=== PATIENT | female | born 1935 | race African-American/Black ===

== ENCOUNTER → 2018-08-02 | Outpatient (CLI) | payer MEDICARE, BC | END | disposition home or self-care (01) | LOC: MRI 09:16 | PROVIDERS: ATTEND Anesthesiology | DX: M51.26 Other intervertebral disc displacement, lumbar region (principal); M48.061 Spinal stenosis, lumbar region without neurogenic claudication; M47.896 Other spondylosis, lumbar region | CPT/HCPCS: 72141; 72148 ==

== ENCOUNTER 2021-02-21 18:36 | Inpatient (IN) | payer MEDICARE, BC ==
[~2021-02-21] VITALS: Ht 165.1 cm; Wt 106.6 kg
[2021-02-21] MEDS ORDERED: SODIUM CHLORIDE 0.9% 1,000 ML IV ONE (19:15)
[2021-02-21 19:50] LABS: HEMATOCRIT. 47.1 % (36.0-48.0); HEMOGLOBIN. 15.5 g/dL (12.0-16.0); MEAN CORPUSCULAR HEMOGLOBIN 30.7 pg (28.0-32.0); MEAN CORPUSCULAR VOLUME 93.3 fL (81.0-99.0); MEAN PLATELET VOLUME 9.1 fl (7.4-10.4); PLATELET 251 x1000/uL (130-400); RED BLOOD CELL COUNT 5.06 mill/uL (4.2-5.4); RED CELL DISTRIBUTION WIDTH 14.8 % (11.6-14.6)
[2021-02-21 19:58] LABS: CHLORIDE 117 mEq/L (98-107)
[2021-02-21 19:59] LABS: INR 1.1; PROTHROMBIN TIME 11.4 sec (9.6-11.0)
[2021-02-21 20:15] LABS: CLARITY URINE CLOUDY (CLEAR); COLOR URINE DARK YELLOW (YELLOW); KETONES URINE TRACE (NEGATIVE); LEUKOCYTE ESTERASE URINE TRACE (NEGATIVE); NITRITE URINE NEGATIVE (NEGATIVE); OCCULT BLOOD URINE 3+ (NEGATIVE); PROTEIN URINE 4+ (NEGATIVE); SPECIFIC GRAVITY URINE 1.024 (1.005-1.030)
[2021-02-21 20:22] LABS: CREATINE KINASE 5094 IU/L (26-192)
[2021-02-21] MEDS ORDERED: SODIUM CHLORIDE 0.9% 1000ML BAG (SEPSIS BOLUS) IV ONE (21:15)
[2021-02-21] MEDS ORDERED: VANCOMYCIN 1 G PREMIX 200 ML IV ONE (21:15)
[2021-02-21] MEDS ORDERED: PIPERACILLIN/TAZ 3.375G PREMIX 50 ML IV ONE (21:15)
[2021-02-21 21:47] LABS: PLATELET ESTIMATE NORMAL
[2021-02-21] MEDS ORDERED: LEVOFLOXACIN 500MG PREMIX 100 ML IV NR (22:15)
[2021-02-21] MEDS ORDERED: CLONIDINE 0.2MG TABLET PO NR (23:00)
[2021-02-22] MEDS: HYDRALAZINE 20MG/ML VIAL IV PRN (01:05)
[2021-02-22 02:00] VITALS: BP 137/76
[2021-02-22] MEDS ORDERED: DEXTROSE 50% WATER 50ML SYRINGE IV PRN (02:15)
[2021-02-22] MEDS ORDERED: LEVOFLOXACIN 500MG PREMIX 100 ML IV SCH ×2 (02:15→09:00)
[2021-02-22 04:00] VITALS: BP 165/53
[2021-02-22 05:45] LABS: CHLORIDE 121 mEq/L (98-107)
[2021-02-22 05:48] LABS: BASOPHILS % 0.2 % (0.0-2.0); EOSINOPHILS % 0.3 % (0.0-5.0); HEMATOCRIT. 44.1 % (36.0-48.0); HEMOGLOBIN. 14.1 g/dL (12.0-16.0); LYMPHOCYTES % 8.6 % (20.0-50.0); MEAN CORPUSCULAR HEMOGLOBIN 30.1 pg (28.0-32.0); MEAN CORPUSCULAR VOLUME 94.3 fL (81.0-99.0); MEAN PLATELET VOLUME 8.7 fl (7.4-10.4); MONOCYTES % 9.5 % (2.0-8.0); NEUTROPHILS % 81.4 % (40.0-76.0); PLATELET 204 x1000/uL (130-400); RED BLOOD CELL COUNT 4.68 mill/uL (4.2-5.4); RED CELL DISTRIBUTION WIDTH 14.9 % (11.6-14.6)
[2021-02-22] MEDS: INSULIN LISPRO 100 UNITS/ML SUBCUT SCH ×4 (06:01→21:00)
[2021-02-22] MEDS: BLOOD SUGAR DIAGNOSTIC STRIP TEST SCH ×4 (06:01→21:49)
[2021-02-22 08:00] VITALS: BP 169/70
[2021-02-22] MEDS: ENOXAPARIN 30MG/0.3ML SYR SUBCUT SCH (08:31)
[2021-02-22] MEDS: AMLODIPINE 10MG TABLET PO SCH (08:32)
[2021-02-22 12:00] VITALS: BP 147/54
[2021-02-22] MEDS: DEXTROSE 5% WATER 1,000 ML IV SCH (12:21)
[2021-02-22] MEDS ORDERED: VANCOMYCIN 1 G PREMIX 200 ML IV SCH (15:00)
[2021-02-22 16:00] VITALS: BP 156/64
[2021-02-22 20:00] VITALS: BP 151/64
[2021-02-22] MEDS: HYDRALAZINE HCL 50MG TABLET PO SCH (21:49)
[2021-02-23] VITALS (8 sets, daily range): BP systolic 110–183; BP diastolic 62–98
[2021-02-23] MEDS: HYDRALAZINE 20MG/ML VIAL IV PRN (02:00)
[2021-02-23] MEDS: DEXTROSE 5% WATER 1,000 ML IV SCH (05:41)
[2021-02-23] MEDS: BLOOD SUGAR DIAGNOSTIC STRIP TEST SCH ×4 (05:41→21:55)
[2021-02-23] MEDS: INSULIN LISPRO 100 UNITS/ML SUBCUT SCH ×4 (05:41→21:54)
[2021-02-23] MEDS: ENOXAPARIN 30MG/0.3ML SYR SUBCUT SCH (09:43)
[2021-02-23] MEDS: HYDRALAZINE HCL 50MG TABLET PO SCH (09:44)
[2021-02-23] MEDS: AMLODIPINE 10MG TABLET PO SCH (09:44)
[2021-02-23 13:44] LABS: BASOPHILS % 0.3 % (0.0-2.0); EOSINOPHILS % 1.3 % (0.0-5.0); HEMATOCRIT. 41.5 % (36.0-48.0); HEMOGLOBIN. 14.1 g/dL (12.0-16.0); LYMPHOCYTES % 12.5 % (20.0-50.0); MEAN CORPUSCULAR HEMOGLOBIN 31.5 pg (28.0-32.0); MEAN CORPUSCULAR VOLUME 92.9 fL (81.0-99.0); MONOCYTES % 11.1 % (2.0-8.0); NEUTROPHILS % 74.8 % (40.0-76.0); PLATELET 199 x1000/uL (130-400); RED BLOOD CELL COUNT 4.47 mill/uL (4.2-5.4); RED CELL DISTRIBUTION WIDTH 14.7 % (11.6-14.6)
[2021-02-23] MEDS: HYDRALAZINE HCL 100MG TABLET PO SCH ×2 (15:34→21:54)
[2021-02-23 16:40] LABS: BASOPHILS % 0.3 % (0.0-2.0); EOSINOPHILS % 1.1 % (0.0-5.0); HEMATOCRIT. 45.3 % (36.0-48.0); HEMOGLOBIN. 15.7 g/dL (12.0-16.0); LYMPHOCYTES % 12.4 % (20.0-50.0); MEAN CORPUSCULAR HEMOGLOBIN 32.5 pg (28.0-32.0); MONOCYTES % 9.9 % (2.0-8.0); NEUTROPHILS % 76.3 % (40.0-76.0); RED BLOOD CELL COUNT 4.82 mill/uL (4.2-5.4); RED CELL DISTRIBUTION WIDTH 15.1 % (11.6-14.6)
[2021-02-23 19:15] LABS: MEAN PLATELET VOLUME 8.8 fl (7.4-10.4); PLATELET 172 x1000/uL (130-400)
[2021-02-23] MEDS: ACETAMINOPHEN 325MG TABLET PO PRN (20:30)
[2021-02-23] MEDS ORDERED: LEVOFLOXACIN 250MG PREMIX 50 ML IV SCH ×2 (21:00)
[2021-02-24] VITALS: BP 135/73
[2021-02-24] MEDS: DEXTROSE 5% WATER 1,000 ML IV SCH ×2 (02:57→23:25)
[2021-02-24 04:00] VITALS: BP 163/84
[2021-02-24] MEDS: INSULIN LISPRO 100 UNITS/ML SUBCUT SCH ×4 (05:18→21:00)
[2021-02-24] MEDS: BLOOD SUGAR DIAGNOSTIC STRIP TEST SCH ×4 (05:18→21:00)
[2021-02-24] MEDS: HYDRALAZINE HCL 100MG TABLET PO SCH ×3 (05:18→21:36)
[2021-02-24 08:00] VITALS: BP 149/65
[2021-02-24] MEDS: AMLODIPINE 10MG TABLET PO SCH (09:19)
[2021-02-24] MEDS: ENOXAPARIN 30MG/0.3ML SYR SUBCUT SCH (09:20)
[2021-02-24] MEDS: ACETAMINOPHEN 325MG TABLET PO PRN ×2 (09:31→21:38)
[2021-02-24 12:00] VITALS: BP 161/62
[2021-02-24 16:00] VITALS: BP 171/67
[2021-02-24 20:00] VITALS: BP 155/76
[2021-02-25] VITALS: BP 102/82
[2021-02-25 04:00] VITALS: BP 149/59
[2021-02-25] MEDS: ACETAMINOPHEN 325MG TABLET PO PRN ×2 (04:37→22:45)
[2021-02-25] MEDS ORDERED: DIPHENHYDRAMINE 50MG CAPSULE PO PRN (04:45)
[2021-02-25] MEDS: DIPHENHYDRAMINE 50MG/ML VIAL IV PRN (04:58)
[2021-02-25] MEDS: BLOOD SUGAR DIAGNOSTIC STRIP TEST SCH ×4 (06:13→21:00)
[2021-02-25] MEDS: HYDRALAZINE HCL 100MG TABLET PO SCH ×3 (06:24→22:13)
[2021-02-25] MEDS: INSULIN LISPRO 100 UNITS/ML SUBCUT SCH ×4 (07:35→21:00)
[2021-02-25 08:00] VITALS: BP 146/67
[2021-02-25] MEDS: ENOXAPARIN 30MG/0.3ML SYR SUBCUT SCH (08:56)
[2021-02-25] MEDS: AMLODIPINE 10MG TABLET PO SCH (08:56)
[2021-02-25 12:00] VITALS: BP 143/62
[2021-02-25] MEDS ORDERED: CEFTRIAXONE 1 G PREMIX 50 ML IV SCH (12:30)
[2021-02-25 16:00] VITALS: BP 142/62
[2021-02-25 16:07] LABS: BASOPHILS % 0.2 % (0.0-2.0); EOSINOPHILS % 0.4 % (0.0-5.0); HEMATOCRIT. 40.6 % (36.0-48.0); LYMPHOCYTES % 9.5 % (20.0-50.0); MEAN CORPUSCULAR HEMOGLOBIN 32.3 pg (28.0-32.0); MEAN CORPUSCULAR VOLUME 93.9 fL (81.0-99.0); MEAN PLATELET VOLUME 9.2 fl (7.4-10.4); MONOCYTES % 10.2 % (2.0-8.0); NEUTROPHILS % 79.7 % (40.0-76.0); PLATELET 211 x1000/uL (130-400); RED BLOOD CELL COUNT 4.33 mill/uL (4.2-5.4); RED CELL DISTRIBUTION WIDTH 14.7 % (11.6-14.6)
[2021-02-25] MEDS ORDERED: POTASSIUM CHLORIDE 20MEQ TABLET SR PO NR (16:45)
[2021-02-25] MEDS ORDERED: LACTULOSE 20G/30ML UDC PO NR (16:54)
[2021-02-25] MEDS: CEFTRIAXONE 1,000 MG in DEXTROSE 5% WATER 50 ML IV SCH (17:27)
[2021-02-25] MEDS: TRAMADOL 50MG TABLET PO PRN (17:28)
[2021-02-25] MEDS: DOCUSATE SODIUM 100MG CAPSULE PO SCH (17:28)
[2021-02-25] MEDS: DEXTROSE 5% WATER 1,000 ML IV SCH (19:15)
[2021-02-25 20:00] VITALS: BP 145/62
[2021-02-26] VITALS (7 sets, daily range): BP systolic 135–156; BP diastolic 50–63
[2021-02-26] MEDS: HYDRALAZINE HCL 100MG TABLET PO SCH ×3 (06:10→21:26)
[2021-02-26] MEDS: BLOOD SUGAR DIAGNOSTIC STRIP TEST SCH ×4 (06:10→20:33)
[2021-02-26] MEDS: INSULIN LISPRO 100 UNITS/ML SUBCUT SCH ×4 (06:54→20:32)
[2021-02-26] MEDS: ENOXAPARIN 30MG/0.3ML SYR SUBCUT SCH ×2 (11:23→11:28)
[2021-02-26] MEDS: AMLODIPINE 10MG TABLET PO SCH (11:29)
[2021-02-26] MEDS: DOCUSATE SODIUM 100MG CAPSULE PO SCH ×2 (11:29→18:03)
[2021-02-26] MEDS: CEFTRIAXONE 1,000 MG in DEXTROSE 5% WATER 50 ML IV SCH (14:01)
[2021-02-26 21:39] LABS: BASOPHILS % 0.2 % (0.0-2.0); HEMOGLOBIN. 13.3 g/dL (12.0-16.0); LYMPHOCYTES % 9.9 % (20.0-50.0); MEAN CORPUSCULAR HEMOGLOBIN 31.4 pg (28.0-32.0); MEAN CORPUSCULAR VOLUME 94.2 fL (81.0-99.0); MEAN PLATELET VOLUME 8.8 fl (7.4-10.4); MONOCYTES % 12.2 % (2.0-8.0); NEUTROPHILS % 76.7 % (40.0-76.0); PLATELET 219 x1000/uL (130-400); RED BLOOD CELL COUNT 4.25 mill/uL (4.2-5.4); RED CELL DISTRIBUTION WIDTH 14.8 % (11.6-14.6)
[2021-02-27] VITALS (7 sets, daily range): BP systolic 138–173; BP diastolic 55–62
[2021-02-27] MEDS: DEXTROSE 5% WATER 1,000 ML IV SCH ×2 (00:50→12:59)
[2021-02-27] MEDS: DIPHENHYDRAMINE 50MG/ML VIAL IV PRN (01:55)
[2021-02-27] MEDS: TRAMADOL 50MG TABLET PO PRN ×2 (01:56→09:40)
[2021-02-27] MEDS: BLOOD SUGAR DIAGNOSTIC STRIP TEST SCH ×4 (06:34→21:09)
[2021-02-27] MEDS: HYDRALAZINE HCL 100MG TABLET PO SCH ×3 (06:36→21:45)
[2021-02-27] MEDS: INSULIN LISPRO 100 UNITS/ML SUBCUT SCH ×4 (06:50→21:11)
[2021-02-27] MEDS: AMLODIPINE 10MG TABLET PO SCH (09:27)
[2021-02-27] MEDS: DOCUSATE SODIUM 100MG CAPSULE PO SCH ×2 (09:27→19:03)
[2021-02-27] MEDS ORDERED: NALOXONE HCL 0.4MG/ML VIAL IV PRN (11:45)
[2021-02-27 12:51] LABS: HEMATOCRIT. 39.7 % (36.0-48.0); HEMOGLOBIN. 13.7 g/dL (12.0-16.0); MEAN CORPUSCULAR HEMOGLOBIN 32.1 pg (28.0-32.0); MEAN CORPUSCULAR VOLUME 93.1 fL (81.0-99.0); MEAN PLATELET VOLUME 8.7 fl (7.4-10.4); PLATELET 247 x1000/uL (130-400); RED BLOOD CELL COUNT 4.26 mill/uL (4.2-5.4); RED CELL DISTRIBUTION WIDTH 14.6 % (11.6-14.6)
[2021-02-27] MEDS: CEFTRIAXONE 1,000 MG in DEXTROSE 5% WATER 50 ML IV SCH (13:00)
[2021-02-27] MEDS: MORPHINE SULFATE 2 MG/ML CPJ (NOT FOR IM USE) IV PRN (14:37)
[2021-02-27 16:33] LABS: PLATELET ESTIMATE NORMAL
[2021-02-27] MEDS: MEGESTROL ACETATE 400 MG/10 ML UDC PO SCH (19:03)
[2021-02-28] VITALS (7 sets, daily range): BP systolic 114–160; BP diastolic 55–94
[2021-02-28] MEDS: HYDROCODONE/ACETAMINOPHEN 5/325MG TABLET PO PRN ×2 (03:36→14:31)
[2021-02-28] MEDS: DIPHENHYDRAMINE 50MG/ML VIAL IV PRN ×2 (05:22→18:11)
[2021-02-28] MEDS: HYDRALAZINE HCL 100MG TABLET PO SCH ×3 (05:23→21:38)
[2021-02-28] MEDS: INSULIN LISPRO 100 UNITS/ML SUBCUT SCH ×4 (06:29→21:00)
[2021-02-28] MEDS: BLOOD SUGAR DIAGNOSTIC STRIP TEST SCH ×4 (06:29→21:35)
[2021-02-28 07:39] LABS: HEMATOCRIT. 36.4 % (36.0-48.0); HEMOGLOBIN. 12.2 g/dL (12.0-16.0); MEAN CORPUSCULAR HEMOGLOBIN 31.3 pg (28.0-32.0); MEAN CORPUSCULAR VOLUME 93.3 fL (81.0-99.0); MEAN PLATELET VOLUME 8.7 fl (7.4-10.4); PLATELET 256 x1000/uL (130-400); RED CELL DISTRIBUTION WIDTH 14.4 % (11.6-14.6)
[2021-02-28] MEDS: DOCUSATE SODIUM 100MG CAPSULE PO SCH ×2 (08:53→18:11)
[2021-02-28] MEDS: ENOXAPARIN 30MG/0.3ML SYR SUBCUT SCH (08:53)
[2021-02-28] MEDS: MEGESTROL ACETATE 400 MG/10 ML UDC PO SCH (08:54)
[2021-02-28] MEDS: AMLODIPINE 10MG TABLET PO SCH (08:59)
[2021-02-28] MEDS: CEFTRIAXONE 1,000 MG in DEXTROSE 5% WATER 50 ML IV SCH (14:20)
[2021-02-28 21:47] LABS: PLATELET ESTIMATE NORMAL
[2021-03-01] VITALS: BP 128/80
[2021-03-01 04:00] VITALS: BP 137/60
[2021-03-01] MEDS: HYDRALAZINE HCL 100MG TABLET PO SCH ×3 (06:00→22:54)
[2021-03-01] MEDS: INSULIN LISPRO 100 UNITS/ML SUBCUT SCH ×4 (06:01→22:55)
[2021-03-01] MEDS: BLOOD SUGAR DIAGNOSTIC STRIP TEST SCH ×4 (06:01→21:00)
[2021-03-01 08:00] VITALS: BP 126/69
[2021-03-01] MEDS: MEGESTROL ACETATE 400 MG/10 ML UDC PO SCH (08:40)
[2021-03-01] MEDS: DOCUSATE SODIUM 100MG CAPSULE PO SCH ×2 (08:40→17:52)
[2021-03-01] MEDS: AMLODIPINE 10MG TABLET PO SCH (08:40)
[2021-03-01] MEDS: ENOXAPARIN 30MG/0.3ML SYR SUBCUT SCH (08:40)
[2021-03-01 09:00] LABS: BASOPHILS % 0.3 % (0.0-2.0); EOSINOPHILS % 1.4 % (0.0-5.0); HEMATOCRIT. 38.4 % (36.0-48.0); HEMOGLOBIN. 13.2 g/dL (12.0-16.0); LYMPHOCYTES % 11.8 % (20.0-50.0); MONOCYTES % 14.8 % (2.0-8.0); NEUTROPHILS % 71.7 % (40.0-76.0); PLATELET 261 x1000/uL (130-400); RED BLOOD CELL COUNT 4.13 mill/uL (4.2-5.4)
[2021-03-01] MEDS: TRAMADOL 50MG TABLET PO PRN (11:17)
[2021-03-01 12:00] VITALS: BP 145/56
[2021-03-01] MEDS: LACTULOSE 20G/30ML UDC PO SCH ×3 (13:48→22:54)
[2021-03-01] MEDS: CEFTRIAXONE 1,000 MG in DEXTROSE 5% WATER 50 ML IV SCH (13:49)
[2021-03-01 16:00] VITALS: BP 143/60
[2021-03-01 20:00] VITALS: BP 146/80
[2021-03-02] VITALS: BP 139/60
[2021-03-02 04:00] VITALS: BP 135/75
[2021-03-02] MEDS: HYDRALAZINE HCL 100MG TABLET PO SCH ×3 (05:37→22:00)
[2021-03-02] MEDS: BLOOD SUGAR DIAGNOSTIC STRIP TEST SCH ×4 (06:38→21:00)
[2021-03-02] MEDS: INSULIN LISPRO 100 UNITS/ML SUBCUT SCH ×4 (06:38→21:00)
[2021-03-02 06:43] LABS: BASOPHILS % 0.2 % (0.0-2.0); EOSINOPHILS % 0.8 % (0.0-5.0); HEMATOCRIT. 36.3 % (36.0-48.0); HEMOGLOBIN. 12.3 g/dL (12.0-16.0); LYMPHOCYTES % 7.4 % (20.0-50.0); MEAN CORPUSCULAR HEMOGLOBIN 31.5 pg (28.0-32.0); MEAN CORPUSCULAR VOLUME 93.1 fL (81.0-99.0); MEAN PLATELET VOLUME 8.1 fl (7.4-10.4); MONOCYTES % 13.1 % (2.0-8.0); NEUTROPHILS % 78.5 % (40.0-76.0); PLATELET 274 x1000/uL (130-400); RED CELL DISTRIBUTION WIDTH 14.7 % (11.6-14.6)
[2021-03-02 08:00] VITALS: BP 126/51
[2021-03-02] MEDS: AMLODIPINE 10MG TABLET PO SCH (09:00)
[2021-03-02] MEDS: DOCUSATE SODIUM 100MG CAPSULE PO SCH ×2 (09:53→18:16)
[2021-03-02] MEDS: MEGESTROL ACETATE 400 MG/10 ML UDC PO SCH (09:53)
[2021-03-02] MEDS: ENOXAPARIN 30MG/0.3ML SYR SUBCUT SCH (09:54)
[2021-03-02] MEDS: HYDROCODONE/ACETAMINOPHEN 5/325MG TABLET PO PRN (09:54)
[2021-03-02 12:00] VITALS: BP_SYST 100; BP_SYST 139; BP_DIAS 52; BP_DIAS 58
[2021-03-02] MEDS: ACETAMINOPHEN 325MG TABLET PO PRN (13:59)
[2021-03-02] MEDS: MORPHINE SULFATE 2 MG/ML CPJ (NOT FOR IM USE) IV PRN (14:00)
[2021-03-02] MEDS: CEFTRIAXONE 1,000 MG in DEXTROSE 5% WATER 50 ML IV SCH (15:00)
[2021-03-02 16:00] VITALS: BP 140/51
[2021-03-02 20:41] VITALS: BP 135/52
[2021-03-03 00:20] VITALS: BP 150/55
[2021-03-03] MEDS: MORPHINE SULFATE 2 MG/ML CPJ (NOT FOR IM USE) IV PRN ×2 (02:49→10:07)
[2021-03-03] MEDS: DIPHENHYDRAMINE 50MG/ML VIAL IV PRN (03:03)
[2021-03-03 04:00] VITALS: BP 146/77
[2021-03-03] MEDS: HYDRALAZINE HCL 100MG TABLET PO SCH (06:00)
[2021-03-03] MEDS: HYDROCODONE/ACETAMINOPHEN 5/325MG TABLET PO PRN (06:00)
[2021-03-03] MEDS: INSULIN LISPRO 100 UNITS/ML SUBCUT SCH ×2 (07:40→12:40)
[2021-03-03] MEDS: BLOOD SUGAR DIAGNOSTIC STRIP TEST SCH ×2 (07:52→12:53)
[2021-03-03 08:00] VITALS: BP 133/58
[2021-03-03] MEDS: AMLODIPINE 10MG TABLET PO SCH (10:06)
[2021-03-03] MEDS: DOCUSATE SODIUM 100MG CAPSULE PO SCH (10:06)
[2021-03-03] MEDS: ENOXAPARIN 30MG/0.3ML SYR SUBCUT SCH (10:06)
[2021-03-03] MEDS: MEGESTROL ACETATE 400 MG/10 ML UDC PO SCH (10:06)
[2021-03-03 12:00] VITALS: BP 136/64
[2021-03-03 13:57] VITALS: BP 136/64
== END 2021-03-03 17:00 | DRG 871 ==
LOC: ER 18:36 → 8WST 21:06 → EDBEDREQ 21:08 → EDBEDREQTM 21:08 → EDBEDREQSVC 21:08 → ENRESERV 22:23
PROVIDERS: ADMIT Internal Medicine; ATTEND Internal Medicine
DX: A41.9 Sepsis, unspecified organism (principal); E43 Unspecified severe protein-calorie malnutrition; G92 Toxic encephalopathy; N17.0 Acute kidney failure with tubular necrosis; S22.21XA Fracture of manubrium, initial encounter for closed fracture; M62.82 Rhabdomyolysis; E87.1 Hypo-osmolality and hyponatremia; N17.9 Acute kidney failure, unspecified; N39.0 Urinary tract infection, site not specified; E87.8 Other disorders of electrolyte and fluid balance, not elsewhere classified; E11.22 Type 2 diabetes mellitus with diabetic chronic kidney disease; E78.00 Pure hypercholesterolemia, unspecified; G89.4 Chronic pain syndrome; I12.9 Hypertensive chronic kidney disease with stage 1 through stage 4 chronic kidney disease, or unspecified chronic kidney disease; Z96.653 Presence of artificial knee joint, bilateral; R13.10 Dysphagia, unspecified; N18.9 Chronic kidney disease, unspecified; R74.01 Elevation of levels of liver transaminase levels; M48.061 Spinal stenosis, lumbar region without neurogenic claudication; Z60.2 Problems related to living alone; M19.079 Primary osteoarthritis, unspecified ankle and foot; W18.39XA Other fall on same level, initial encounter; M48.02 Spinal stenosis, cervical region; Z98.1 Arthrodesis status; Z90.49 Acquired absence of other specified parts of digestive tract; Z88.0 Allergy status to penicillin; Z79.899 Other long term (current) drug therapy; Z68.39 Body mass index [BMI] 39.0-39.9, adult; Y93.89 Activity, other specified; Y92.89 Other specified places as the place of occurrence of the external cause; Y99.8 Other external cause status; M51.16 Intervertebral disc disorders with radiculopathy, lumbar region; M47.812 Spondylosis without myelopathy or radiculopathy, cervical region; M47.26 Other spondylosis with radiculopathy, lumbar region; F03.90 Unspecified dementia, unspecified severity, without behavioral disturbance, psychotic disturbance, mood disturbance, and anxiety
CPT/HCPCS: 36415; 71045; 72131; 72192; 73521; 73610; 73630; 73700; 76705; 80048; 80053; 80202; 81003; 82550; 82962; 83036; 83605; 83880; 84145; 84484; 85025; 92610; 93005; 93970; 97110; 97161; 97165; 97530; 99291; A6261; C1893; J0360; J0696; J1200; J1650; J1815; J1956; J2270; J3370; J7030; J7040; J7060; J7070

== ENCOUNTER 2021-07-03 15:43 | Inpatient (IN) | payer MEDICARE, BC ==
[~2021-07-03] VITALS: Ht 162.6 cm; Wt 85.8 kg
[2021-07-03 19:34] LABS: BASOPHILS % 0.6 % (0.0-2.0); EOSINOPHILS % 1.8 % (0.0-5.0); HEMATOCRIT. 35.4 % (36.0-48.0); HEMOGLOBIN. 11.6 g/dL (12.0-16.0); MEAN CORPUSCULAR HEMOGLOBIN 30.9 pg (28.0-32.0); MEAN CORPUSCULAR VOLUME 94.2 fL (81.0-99.0); MEAN PLATELET VOLUME 7.3 fl (7.4-10.4); MONOCYTES % 10.7 % (2.0-8.0); NEUTROPHILS % 64.9 % (40.0-76.0); PLATELET 233 x1000/uL (130-400); RED BLOOD CELL COUNT 3.76 mill/uL (4.2-5.4)
[2021-07-03 19:42] LABS: CHLORIDE 115 mEq/L (98-107)
[2021-07-03] MEDS ORDERED: ASPIRIN 81MG TABLET PO ONE (19:45)
[2021-07-03 19:59] LABS: CLARITY URINE CLEAR (CLEAR); COLOR URINE YELLOW (YELLOW); KETONES URINE NEGATIVE (NEGATIVE); LEUKOCYTE ESTERASE URINE NEGATIVE (NEGATIVE); NITRITE URINE NEGATIVE (NEGATIVE); OCCULT BLOOD URINE NEGATIVE (NEGATIVE); PH URINE 5.5 (4.5-8.0); PROTEIN URINE 2+ (NEGATIVE); SPECIFIC GRAVITY URINE 1.009 (1.005-1.030); UROBILINOGEN URINE 0.2 E.U./dL (0.2-1.0)
[2021-07-03] MEDS ORDERED: AMLODIPINE 5MG TABLET PO ONE ×2 (21:00→22:00)
[2021-07-03] MEDS ORDERED: NITROGLYCERIN 0.4MG TABLET SL SL ONE (21:15)
[2021-07-03] MEDS ORDERED: CLONIDINE 0.1MG TABLET PO PRN (22:23)
[2021-07-03] MEDS: ACETAMINOPHEN 325MG TABLET PO PRN (23:31)
[2021-07-04 00:30] VITALS: BP 117/51
[2021-07-04 04:00] VITALS: BP 143/58
[2021-07-04] MEDS: ACETAMINOPHEN 325MG TABLET PO PRN ×2 (04:26→05:39)
[2021-07-04 08:00] VITALS: BP 146/68
[2021-07-04 08:02] LABS: HEMATOCRIT 31.3 % (36.0-48.0); HEMOGLOBIN 10.5 g/dL (12.0-16.0); MEAN CORPUSCULAR HEMOGLOBIN 31.9 pg (28.0-32.0); MEAN CORPUSCULAR VOLUME 94.9 fL (81.0-99.0); PLATELET 196 x1000/uL (130-400); RED BLOOD CELL COUNT 3.29 mill/uL (4.2-5.4); RED CELL DISTRIBUTION WIDTH 14.8 % (11.6-14.6)
[2021-07-04] MEDS: ASPIRIN 81MG EC TABLET PO SCH (10:16)
[2021-07-04] MEDS ORDERED: DEXTROSE 50% WATER 50ML SYRINGE IV PRN (11:45)
[2021-07-04 12:00] VITALS: BP 165/64
[2021-07-04] MEDS: BLOOD SUGAR DIAGNOSTIC STRIP TEST SCH ×3 (12:10→21:50)
[2021-07-04] MEDS: INSULIN LISPRO 100 UNITS/ML SUBCUT SCH ×3 (12:40→21:00)
[2021-07-04] MEDS: LOSARTAN POTASSIUM 25 MG TABLET PO SCH (14:11)
[2021-07-04 16:00] VITALS: BP 109/56
[2021-07-04] MEDS: ENOXAPARIN 40MG/0.4ML SYR SUBCUT SCH (16:51)
[2021-07-04] MEDS: GABAPENTIN 300MG CAPSULE PO SCH (16:51)
[2021-07-04] MEDS: HYDRALAZINE 20MG/ML VIAL IV PRN (18:27)
[2021-07-04 20:00] VITALS: BP 103/53
[2021-07-04] MEDS: METOPROLOL TARTRATE 25MG TABLET PO SCH (21:00)
[2021-07-04] MEDS: AMLODIPINE 5MG TABLET PO SCH (21:00)
[2021-07-04] MEDS: ATORVASTATIN CALCIUM 40MG TABLET PO SCH (22:05)
[2021-07-05] VITALS: BP 116/80
[2021-07-05] MEDS: ACETAMINOPHEN 325MG TABLET PO PRN (02:56)
[2021-07-05 04:00] VITALS: BP 144/51
[2021-07-05] MEDS: INSULIN LISPRO 100 UNITS/ML SUBCUT SCH ×4 (07:40→21:00)
[2021-07-05 08:00] VITALS: BP 110/82
[2021-07-05] MEDS: BLOOD SUGAR DIAGNOSTIC STRIP TEST SCH ×4 (08:03→21:16)
[2021-07-05] MEDS: GABAPENTIN 300MG CAPSULE PO SCH ×2 (10:58→17:48)
[2021-07-05] MEDS: METOPROLOL TARTRATE 25MG TABLET PO SCH ×2 (10:58→21:16)
[2021-07-05] MEDS: ASPIRIN 81MG EC TABLET PO SCH (10:58)
[2021-07-05] MEDS: AMLODIPINE 5MG TABLET PO SCH ×2 (10:59→21:15)
[2021-07-05] MEDS: LOSARTAN POTASSIUM 25 MG TABLET PO SCH (10:59)
[2021-07-05 12:00] VITALS: BP 190/86
[2021-07-05] MEDS: HYDRALAZINE 20MG/ML VIAL IV PRN (13:14)
[2021-07-05 16:00] VITALS: BP 164/70
[2021-07-05] MEDS: ENOXAPARIN 40MG/0.4ML SYR SUBCUT SCH (17:49)
[2021-07-05 20:00] VITALS: BP 144/58
[2021-07-05] MEDS: ATORVASTATIN CALCIUM 40MG TABLET PO SCH (21:14)
[2021-07-06] VITALS: BP 143/61
[2021-07-06 04:00] VITALS: BP 151/98
[2021-07-06] MEDS: INSULIN LISPRO 100 UNITS/ML SUBCUT SCH ×2 (06:11→12:40)
[2021-07-06] MEDS: BLOOD SUGAR DIAGNOSTIC STRIP TEST SCH ×2 (06:11→12:10)
[2021-07-06 07:48] LABS: HEMATOCRIT 32.4 % (36.0-48.0); HEMOGLOBIN 10.6 g/dL (12.0-16.0); MEAN CORPUSCULAR HEMOGLOBIN 31.2 pg (28.0-32.0); PLATELET 202 x1000/uL (130-400); RED BLOOD CELL COUNT 3.41 mill/uL (4.2-5.4); RED CELL DISTRIBUTION WIDTH 14.8 % (11.6-14.6)
[2021-07-06 08:00] VITALS: BP 157/63
[2021-07-06] MEDS: LOSARTAN POTASSIUM 25 MG TABLET PO SCH (08:47)
[2021-07-06] MEDS: ASPIRIN 81MG EC TABLET PO SCH (08:47)
[2021-07-06] MEDS: HYDRALAZINE HCL 10MG TABLET PO SCH ×3 (08:47→22:54)
[2021-07-06] MEDS: AMLODIPINE 5MG TABLET PO SCH ×2 (08:47→21:44)
[2021-07-06] MEDS: METOPROLOL TARTRATE 25MG TABLET PO SCH (08:47)
[2021-07-06] MEDS: GABAPENTIN 300MG CAPSULE PO SCH ×2 (08:47→18:25)
[2021-07-06 12:00] VITALS: BP 153/66
[2021-07-06] MEDS: ENOXAPARIN 40MG/0.4ML SYR SUBCUT SCH (15:24)
[2021-07-06] MEDS: CLONIDINE 0.1MG TABLET PO SCH ×2 (15:24→22:54)
[2021-07-06 16:00] VITALS: BP 154/57
[2021-07-06 20:00] VITALS: BP 168/67
[2021-07-06] MEDS ORDERED: OXYCODONE HCL/ACETAMINOPHEN 5/325MG TABLET PO PRN (21:00)
[2021-07-06] MEDS ORDERED: METOPROLOL TARTRATE 25MG TABLET PO SCH (21:00)
[2021-07-06] MEDS: ATORVASTATIN CALCIUM 40MG TABLET PO SCH (21:44)
[2021-07-06] MEDS: ONDANSETRON HCL 4MG/2ML INJ IV PRN (21:46)
[2021-07-06] MEDS ORDERED: OXYCODONE HCL 5MG TABLET PO PRN (23:45)
[2021-07-06] MEDS ORDERED: NALOXONE HCL 0.4 MG/ML 1ML VIAL IV PRN (23:45)
[2021-07-07] VITALS: BP 133/59
[2021-07-07 04:00] VITALS: BP 147/56
[2021-07-07] MEDS: HYDRALAZINE HCL 10MG TABLET PO SCH (05:51)
[2021-07-07] MEDS: CLONIDINE 0.1MG TABLET PO SCH (05:52)
[2021-07-07] MEDS: ONDANSETRON HCL 4MG/2ML INJ IV PRN ×2 (05:58→09:15)
[2021-07-07 06:41] LABS: BASOPHILS % 0.4 % (0.0-2.0); EOSINOPHILS % 1.6 % (0.0-5.0); HEMATOCRIT. 32.6 % (36.0-48.0); HEMOGLOBIN. 10.9 g/dL (12.0-16.0); LYMPHOCYTES % 25.6 % (20.0-50.0); MEAN CORPUSCULAR HEMOGLOBIN 31.8 pg (28.0-32.0); MEAN CORPUSCULAR VOLUME 95.5 fL (81.0-99.0); MONOCYTES % 10.4 % (2.0-8.0); PLATELET 177 x1000/uL (130-400); RED BLOOD CELL COUNT 3.41 mill/uL (4.2-5.4); RED CELL DISTRIBUTION WIDTH 14.5 % (11.6-14.6)
[2021-07-07 08:00] VITALS: BP 96/41
[2021-07-07] MEDS: AMLODIPINE 5MG TABLET PO SCH ×2 (09:14→21:26)
[2021-07-07] MEDS: ASPIRIN 81MG EC TABLET PO SCH (09:15)
[2021-07-07] MEDS: ACETAMINOPHEN 325MG TABLET PO PRN (09:15)
[2021-07-07] MEDS: LOSARTAN POTASSIUM 25 MG TABLET PO SCH ×2 (09:15→21:26)
[2021-07-07] MEDS: GABAPENTIN 300MG CAPSULE PO SCH ×2 (09:15→17:00)
[2021-07-07] MEDS ORDERED: BISACODYL 10MG SUPP PR PRN (10:45)
[2021-07-07] MEDS ORDERED: PROCHLORPERAZINE 10MG/2ML VIAL IV PRN (10:45)
[2021-07-07 12:00] VITALS: BP 112/51
[2021-07-07 12:32] LABS: VITAMIN B12 SERUM 353 pg/mL (211-911)
[2021-07-07] MEDS: ENOXAPARIN 40MG/0.4ML SYR SUBCUT SCH (15:29)
[2021-07-07 16:00] VITALS: BP 126/65
[2021-07-07] MEDS: FERROUS SULFATE 325MG TABLET PO SCH (17:40)
[2021-07-07] MEDS ORDERED: ONDANSETRON HCL 4MG/2ML INJ IV PRN (18:00)
[2021-07-07] MEDS ORDERED: MORPHINE SULFATE 2 MG/ML CPJ (NOT FOR IM USE) IV PRN (19:15)
[2021-07-07 20:00] VITALS: BP 155/47
[2021-07-07] MEDS: ATORVASTATIN CALCIUM 40MG TABLET PO SCH (21:26)
[2021-07-08] VITALS: BP 130/60
[2021-07-08 04:00] VITALS: BP 146/54
[2021-07-08 08:00] VITALS: BP 141/76
[2021-07-08] MEDS: ASPIRIN 81MG EC TABLET PO SCH (09:28)
[2021-07-08] MEDS: GABAPENTIN 300MG CAPSULE PO SCH ×2 (09:28→17:57)
[2021-07-08] MEDS: FERROUS SULFATE 325MG TABLET PO SCH ×3 (09:28→17:57)
[2021-07-08] MEDS: LOSARTAN POTASSIUM 25 MG TABLET PO SCH ×2 (09:29→21:09)
[2021-07-08] MEDS: AMLODIPINE 5MG TABLET PO SCH ×2 (09:29→21:09)
[2021-07-08 12:00] VITALS: BP 129/60
[2021-07-08 16:00] VITALS: BP 114/71
[2021-07-08] MEDS: ENOXAPARIN 40MG/0.4ML SYR SUBCUT SCH (17:58)
[2021-07-08 20:00] VITALS: BP 133/51
[2021-07-08] MEDS: ATORVASTATIN CALCIUM 40MG TABLET PO SCH (21:09)
[2021-07-09] VITALS: BP 148/55
[2021-07-09 04:00] VITALS: BP 127/55
[2021-07-09 08:00] VITALS: BP 143/53
[2021-07-09] MEDS: FERROUS SULFATE 325MG TABLET PO SCH ×2 (09:05→15:02)
[2021-07-09] MEDS: AMLODIPINE 5MG TABLET PO SCH (09:05)
[2021-07-09] MEDS: LOSARTAN POTASSIUM 25 MG TABLET PO SCH (09:05)
[2021-07-09] MEDS: ASPIRIN 81MG EC TABLET PO SCH (09:05)
[2021-07-09] MEDS: GABAPENTIN 300MG CAPSULE PO SCH (09:05)
[2021-07-09] MEDS ORDERED: FERR-63 PO (10:44)
[2021-07-09] MEDS ORDERED: GABA-532 PO (10:44)
[2021-07-09] MEDS ORDERED: AMLO5TAB88 PO (10:44)
[2021-07-09] MEDS ORDERED: LIP40 PO (10:44)
[2021-07-09] MEDS ORDERED: LOSA25TA3 PO (10:44)
[2021-07-09] MEDS ORDERED: ASPI-1406 PO (10:44)
[2021-07-09 12:00] VITALS: BP 130/50
[2021-07-09] MEDS ORDERED: HYDRALAZINE HCL 100MG TABLET PO SCH (13:00)
[2021-07-09 14:29] VITALS: BP 130/50
[2021-07-09] MEDS: ENOXAPARIN 40MG/0.4ML SYR SUBCUT SCH (15:02)
== END 2021-07-09 16:25 | disposition home health service (06) | DRG 281 ==
LOC: ER 15:43 → 8WST 22:01 → ENRESERV 22:38
PROVIDERS: ADMIT Specialist; ATTEND Specialist
DX: I16.1 Hypertensive emergency (principal); I21.A1 Myocardial infarction type 2; E87.0 Hyperosmolality and hypernatremia; E11.9 Type 2 diabetes mellitus without complications; E78.5 Hyperlipidemia, unspecified; I10 Essential (primary) hypertension; I27.20 Pulmonary hypertension, unspecified; Z96.653 Presence of artificial knee joint, bilateral; D50.9 Iron deficiency anemia, unspecified; I95.9 Hypotension, unspecified; I34.0 Nonrheumatic mitral (valve) insufficiency; R00.1 Bradycardia, unspecified; Z88.0 Allergy status to penicillin; Z79.899 Other long term (current) drug therapy; Z82.49 Family history of ischemic heart disease and other diseases of the circulatory system
CPT/HCPCS: 36415; 71045; 74018; 80048; 80053; 80061; 81003; 82607; 82962; 83540; 83550; 83735; 83880; 84484; 85025; 85027; 85044; 93005; 93306; 97110; 97116; 97162; 97166; 97530; 97535; 99291; J0360; J0780; J1650; J2270; J2405